=== PATIENT | female | born 1985 | race Caucasian/White ===

== ENCOUNTER → 2019-03-16 | Outpatient (CLI) | payer OTHER ==
[~2019-03-16] MED LIST: CRUTCH2 XX; CRUTCH4 USE; HYDACE5 PO; IBUP800 PO; IRON150C PO; NAPR500 PO; Norco 5-325 Ta1 EACH PO; Verotin-Gr Cap1 EACH PO; Zofran Odt4 MG SL
[2019-03-18 15:07] LABS: HPV 16 Negative (Negative); HPV 18 Negative (Negative); HPV OTHER HR TYPES Negative (Negative)
== END | disposition home or self-care (01) ==
LOC: LAB 08:40 → LAB SHORT 08:40
PROVIDERS: Obstetrics & Gynecology
DX: Z01.419 Encounter for gynecological examination (general) (routine) without abnormal findings (principal)
CPT/HCPCS: 87624; G0123

== ENCOUNTER → 2022-10-07 | Outpatient (CLI) | payer BC ==
[2022-10-08 11:30] LABS: Protein, Urine Quantitative 21.7 mg/dL (0.0-11.9)
== END | disposition home or self-care (01) ==
LOC: LAB SHORT 07:00
PROVIDERS: Obstetrics & Gynecology
DX: O09.892 Supervision of other high risk pregnancies, second trimester (principal)
CPT/HCPCS: 81050; 84156

== ENCOUNTER → 2024-01-08 | Outpatient (CLI) | payer OTHER ==
[~2024-01-08] MED LIST changes: +ASPI81CH PO; +PRENATAL TABLE1 EAC2 PO
[2024-01-16 06:39] LABS: HPV HIGH RISK BY TMA Not Detected; HPV SOURCE Cervical
== END ==
LOC: LAB SHORT 18:52 → LAB 18:52
PROVIDERS: Obstetrics & Gynecology
DX: Z01.419 Encounter for gynecological examination (general) (routine) without abnormal findings (principal)
CPT/HCPCS: 87624; G0123

== ENCOUNTER → 2024-02-12 | Outpatient (CLI) | payer OTHER | END | disposition home or self-care (01) | LOC: LAB 11:19 → LAB SHORT 11:19 | DX: D28.0 Benign neoplasm of vulva (principal) | CPT/HCPCS: 88305 ==

== ENCOUNTER 2024-05-05 14:03 | Emergency (ER) | payer OTHER ==
[~2024-05-05] VITALS: Ht 172.7 cm; Wt 123.4 kg
[2024-05-05 15:39] LABS: CORONAVIRUS COVID-19 AG Negative (NEGATIVE); INFLUENZA A AG Negative (NEGATIVE); INFLUENZA B AG Negative (NEGATIVE)
[2024-05-05] MEDS ORDERED: Ibuprofen 600 MG Tab PO ONE (16:10)
[2024-05-05] MEDS ORDERED: Ondansetron HCl 2 MG / ML 2ML Vial IV ONE (16:20)
[2024-05-05 16:48] LABS: BASOPHILS ABSOLUTE AUTO 0.03 K/mm3 (0.00-0.23); BASOPHILS PERCENT AUTO 0 % (0-2); EOSINOPHILS ABSOLUTE AUTO 0.23 K/mm3 (0.00-0.68); EOSINOPHILS PERCENT AUTO 3 % (0-6); Hematocrit 41.6 % (33.0-51.0); Hemoglobin 14.4 g/dL (11.5-16.0); IMMATURE GRAN ABSOLUTE AUTO 0.02 K/mm3 (0.00-0.10); IMMATURE GRAN PERCENT AUTO 0 % (0-1); LYMPHOCYTES ABSOLUTE AUTO 1.51 K/mm3 (0.84-5.20); LYMPHOCYTES PERCENT AUTO 16 % (21-46); MONOCYTES ABSOLUTE AUTO 0.67 K/mm3 (0.16-1.47); MONOCYTES PERCENT AUTO 7 % (4-13); Mean Corpuscular HGB 28.5 pg (26.0-34.0); Mean Corpuscular HGB Conc 34.6 g/dL (31.5-36.5); Mean Corpuscular Volume 82 fL (80-100); Mean Platelet Volume 9.7 fL (9.1-12.4); NEUTROPHILS ABSOLUTE AUTO 6.89 K/mm3 (1.96-9.15); NEUTROPHILS PERCENT AUTO 74 % (41-73); Platelet Count 216 K/mm3 (150-400); RDW Coefficient Variation 12.7 % (11.7-14.2); RDW Standard Deviation 38.4 fL (35.1-46.3); Red Blood Cell Count 5.06 M/mm3 (3.80-5.20); White Blood Cell Count 9.35 K/mm3 (4.00-11.30)
[2024-05-05 17:13] LABS: Albumin, Blood 3.7 g/dL (3.4-5.0); Albumin/Globulin Ratio 0.9 (0.8-1.8); Bilirubin, Total 0.7 mg/dL (0.1-1.0); Bun/Creatinine Ratio 11.3 (12.0-20.0); Calcium, Blood 9.2 mg/dL (8.5-10.1); Creatinine, Blood 0.71 mg/dL (0.40-1.00); Globulin, Blood 4.1 g/dL (2.2-4.0); Potassium, Blood 3.2 mmol/L (3.5-5.5); Total Protein, Blood 7.8 g/dL (6.4-8.2)
[2024-05-05 18:29] VITALS: BP 156/112
[2024-05-05] MEDS ORDERED: ONDA4ODT MM (18:56)
[2024-05-05] MEDS ORDERED: FAMO20 PO (18:56)
[2024-05-05] MEDS ORDERED: IBUP600 PO (18:56)
== END 2024-05-05 18:00 | disposition home or self-care (01) ==
LOC: ER 14:03
PROVIDERS: Physician Assistant; Student in an Organized Health Care Education/Training Program
DX: J06.9 Acute upper respiratory infection, unspecified (principal); A08.4 Viral intestinal infection, unspecified; I10 Essential (primary) hypertension; Z79.899 Other long term (current) drug therapy
CPT/HCPCS: 71046; 80053; 85025; 87428-QW; 93005; 93010; 96374; 99284-25; A9270; J2405

== ENCOUNTER 2024-05-29 16:38 | Emergency (ER) | payer OTHER ==
[~2024-05-29] VITALS: Ht 172.7 cm; Wt 99.8 kg
[~2024-05-29 16:38] MED LIST changes: +FAMO20 PO; +IBUP600 PO; +ONDA4ODT MM
[2024-05-29 17:05] VITALS: BP 170/108
== END 2024-05-29 19:53 | disposition home or self-care (01) ==
LOC: ER 16:38
DX: S82.55XA Nondisplaced fracture of medial malleolus of left tibia, initial encounter for closed fracture (principal); Z79.1 Long term (current) use of non-steroidal anti-inflammatories (NSAID); Z79.899 Other long term (current) drug therapy; X50.1XXA Overexertion from prolonged static or awkward postures, initial encounter
CPT/HCPCS: 29515; 73610; 99283-25